=== PATIENT | female | born 1955 | race African-American/Black ===

== ENCOUNTER → 2017-01-19 | Outpatient (CLI) | payer OTHER ==
[~2017-01-19] MED LIST: ESTR0.3T PO; LEVO25TA55 PO; METF500T4 PO
[2017-01-19] MEDS: GADOBUTROL 7.5 MMOL/7.5 ML VIAL INT ART ONE (12:12)
[2017-01-19] MEDS: LIDOCAINE 1% Multi-Dose 20 ML VIAL. ID ONE (12:12)
--- NOTE | 2017-01-19 12:33 | KCIC ---
EXAM: Fluoroscopically guided right hip injection for MR arthrography. HISTORY: Right hip pain. MR arthrography as requested. COMPARISON: None. FINDINGS: The procedure along with its risks and benefits were explained to the patient. She agreed to proceed. A timeout procedure was performed. The right hip joint was visualized fluoroscopically. The overlying skin was sterilely prepped and infiltrated with 1% lidocaine for local anesthesia. Under fluoroscopic guidance, a 22-gauge spinal needle was advanced into the right hip joint. Intra-articular positioning was confirmed with a small amount of air given the patient's stated iodine allergy. 10 mL 1:200 dilution gadolinium contrast with saline was instilled under fluoroscopic control. Instrumentation was withdrawn and a sterile dressing placed. There were no immediate complications. Refer to the MR report for additional information. One fluoroscopic image was obtained. Fluoroscopy time 52 seconds. IMPRESSION: 1. Successful fluoroscopically guided right hip injection. Electronically signed by: Inna Sood MD (01/19/2017 12:29 PM) [id number]
--- NOTE | 2017-01-19 14:26 | KCIC ---
MR arthrogram of the right hip Indication: Right hip pain chronically, for one year. No known injury. Technique: Standard 4 plane sequences are obtained. Intra-articular contrast was injected by different radiologist, who will dictate that procedure as a separate report. Findings: Bones: No bone lesion, acute fracture or acute bone marrow edema. No femoral head osteonecrosis. Joint: Mild chondromalacia. Labrum: Small defect or tear at the anterior labrum. Gluteus minimus and medius tendon: Mild thickening and ill-definition with irregular signal in the gluteus minimus tendon compatible with tendinosis. No high-grade tear. Gluteus medius tendon is intact. Hamstring tendon: Intact Iliopsoas tendon: Intact No acute soft tissue abnormality is identified. Impression: Small tear at the anterior labrum. Electronically signed by: Ernie Bahena MD (01/19/2017 2:23 PM) [facility]
== END | disposition home or self-care (01) ==
LOC: KCIC 10:34
PROVIDERS: ATTEND Family Medicine
DX: S73.101A Unspecified sprain of right hip, initial encounter (principal); M94.251 Chondromalacia, right hip; X58.XXXA Exposure to other specified factors, initial encounter; Y93.9 Activity, unspecified; Y92.89 Other specified places as the place of occurrence of the external cause; Y99.8 Other external cause status
CPT/HCPCS: 73525; 73722; A9585

== ENCOUNTER → 2021-05-10 | Outpatient (CLI) | payer OTHER ==
[~2021-05-10] MED LIST changes: +GADOTERATE 7.5 MMOL/15ML VIAL. IVP ONE; +METF500T16 PO; -METF500T4 PO
--- NOTE | 2021-05-10 10:45 | KCIC ---
EXAM: Brain MRI with and without contrast. HISTORY: Frontal headache. TECHNIQUE: Multiplanar, multisequence magnetic resonance imaging of the brain was performed prior to and following the administration of intravenous contrast. COMPARISON: 03/30/2016 FINDINGS: There is no restricted diffusion to suggest acute or subacute infarction. There is no susce ptibility effect to suggest hemorrhage. There is no mass effect or midline shift. There is no hydroce phalus. There are scattered foci of T2/FLAIR hyperintensity within the cerebral white matter. This is stable compared to the prior study, allowing for differences in imaging technique. The orbits are unremarkable. There is mild ethmoid and right maxillary sinus mucosal thickening. Ther e is minimal right mastoid fluid. There are normal flow voids within the cerebral vessels. There is n o suspicious calvarial lesion. There is no suspicious enhancing lesion. IMPRESSION: 1. No acute intracranial finding. 2. Stable scattered foci of signal change within the cerebral white matter, a nonspecific finding whi ch is most commonly due to chronic small vessel disease in patients of this age. Given the patient hi story, the possibility of changes due to chronic migraine headaches is also considered. Electronically signed by: Mary Douglas MD (05/10/2021 10:42 AM) [id number]
== END ==
LOC: KCIC MRI 09:00
PROVIDERS: ATTEND Family Medicine
DX: R51.9 Headache, unspecified (principal)
CPT/HCPCS: 70553; 82565; A9575